=== PATIENT | male | born 1985 | race African-American/Black ===

== ENCOUNTER 2023-04-21 20:39 | Emergency (ER) | payer SELFPAY ==
[~2023-04-21] VITALS: Ht 185.4 cm; Wt 104.0 kg
[2023-04-21 21:14] VITALS: O2SAT 100
[2023-04-21] MEDS ORDERED: LIDOCAINE HCL/PF 1% 10 MG/ML 5ML VIAL INFIL ONE (22:00)
[2023-04-21] MEDS ORDERED: BACITRACIN ZINC OINT UDPKT TOP ONE (22:00)
[2023-04-21] MEDS: KETOROLAC 60MG/2ML VIAL IM STA (22:08)
[2023-04-21] MEDS ORDERED: IBUP-2029 PO (23:44)
[2023-04-22 00:45] VITALS: BP 154/89; PULSE 86; RESP 18; TEMP 98
== END 2023-04-22 00:49 | disposition home or self-care (01) ==
LOC: ER 20:39
DX: S61.213A Laceration without foreign body of left middle finger without damage to nail, initial encounter (principal); S01.81XA Laceration without foreign body of other part of head, initial encounter; W01.0XXA Fall on same level from slipping, tripping and stumbling without subsequent striking against object, initial encounter; Y93.89 Activity, other specified; Y92.89 Other specified places as the place of occurrence of the external cause; Y99.8 Other external cause status
CPT/HCPCS: 73130; 96372; 99283; J1885; J3490; Z7610 ×2